=== PATIENT | male | born 1960 | race Caucasian/White ===

== ENCOUNTER 2021-03-31 19:31 | Inpatient (IN) ==
[2021-03-31] MEDS ORDERED: *HR* LORazepam 2 MG/ML VIAL IVP ONE (22:23)
[2021-03-31] MEDS ORDERED: Naloxone 0.4 MG/ML INJ IVP PRN (22:25)
[2021-03-31] MEDS ORDERED: Ondansetron ODT 4 MG TAB.RAPDIS SL PRN (22:25)
[2021-03-31] MEDS ORDERED: Melatonin 3 MG TABLET PO PRN (22:25)
[2021-03-31 22:54] LABS: Basophils % 0.4 %; Hematocrit 43.6 % (37.5-50.1); Hemoglobin 14.5 g/dL (12.9-16.9); Immature Granulocytes % 0.6 % (0-4); Lymphocytes # 0.3 K/mcL (0.6-4.6); Lymphocytes % 5.8 %; Mean Corpuscular HGB Conc 33.3 g/dL (31.6-35.5); Mean Corpuscular Hemoglobin 32.7 pg (28.0-33.3); Mean Corpuscular Volume 98.2 fL (83.0-100.0); Monocytes % 0.8 %; Neutrophils # 4.7 K/mcL (1.6-8.9); Platelet Count 142 K/mcL (140-400); Red Blood Count 4.44 M/mcL (4.19-5.50); Red Cell Distribution Width 14.9 % (11.5-14.5); Segmented Neutrophils % 92.4 %
[2021-03-31 23:03] LABS: Bilirubin,Urine Negative (Negative); Blood,Urine Negative (Negative); Clarity,Urine Clear (Clear); Color,Urine Colorless (Yellow); Glucose,Urine (UA) 300 mg/dL (Normal); Ketones,Urine 20 mg/dL (Negative); Leukocyte Esterase,Urine Negative (Negative); Mucus,Urine Few per lpf (None-Few); Nitrite,Urine Negative (Negative); PH,Urine 6.5 pH Units (5.0-8.0); Protein,Urine Negative (Neg-Trace); RBC,Urine 0-3 per hpf (0-3); Specific Gravity,Urine 1.018 (1.010-1.025); Squamous Epithelial Cell,Urine Few per hpf (None-Few); Urobilinogen,Urine Normal (Normal); WBC,Urine 0-3 per hpf (0-3)
[2021-03-31 23:10] LABS: BUN/Creatinine Ratio 15 (6-26); Blood Urea Nitrogen 10 mg/dL (6-20); Calcium 7.7 mg/dL (8.6-10.3); Carbon Dioxide 22 mEq/L (23-29); Chloride 99 mEq/L (98-107); Glucose 163 mg/dL (70-105); Osmolality,Calculated 279 (280-300); Potassium 3.9 mEq/L (3.5-5.1); Sodium 133 mEq/L (136-145); eGFR For African Americans > 60 (> 60); eGFR For Non-African Americans > 60 (> 60)
[2021-03-31] MEDS ORDERED: *HR* LORazepam 2 MG/ML VIAL IVP PRN ×2 (23:16)
[2021-03-31] MEDS ORDERED: Sennosides/Docusate Sodium TABLET PO PRN (23:18)
[2021-03-31] MEDS ORDERED: Acetaminophen 325 MG TABLET PO PRN (23:18)
[2021-03-31] MEDS ORDERED: Ringers Solution, Lactated 1,000 ML IVC SCH (23:45)
[2021-04-01] MEDS: Budesonide/Formoterol 160/4.5 1 PUFF INH IH SCH ×3 (00:10→19:54)
[2021-04-01] MEDS: Ipratropium/Albuterol Neb 3 ML IH SCH ×5 (00:12→19:54)
[2021-04-01] MEDS: Folic Acid 1 MG in 0.9 % Sodium Chloride 50 ML IVPB SCH ×3 (00:15→16:41)
[2021-04-01 00:18] LABS: Amphetamine Screen,Urine Positive ng/mL (Cutoff=1000); Barbiturate Screen,Urine Positive ng/mL (Cutoff=200); Benzodiazepines Screen,Urine Negative ng/mL (Cutoff=200); Cannabinoid Screen,Urine Negative ng/mL (Cutoff = 50); Cocaine Screen,Urine Negative ng/mL (Cutoff= 300); Opiate Screen,Urine Negative ng/mL (Cutoff=300); Phencyclidine Screen,Urine Negative ng/mL (Cutoff=25)
[2021-04-01] MEDS ORDERED: Nicotine 21 MG PATCH.TD24 TD PRN (00:28)
[2021-04-01] MEDS: Thiamine (B-1) 200 MG in 0.9 % Sodium Chloride 50 ML IVPB SCH ×3 (00:43→16:42)
[2021-04-01 03:04] LABS: Hematocrit 42.3 % (37.5-50.1); Mean Corpuscular HGB Conc 33.1 g/dL (31.6-35.5); Mean Corpuscular Hemoglobin 32.5 pg (28.0-33.3); Mean Corpuscular Volume 98.1 fL (83.0-100.0); Mean Platelet Volume 10.2 fL (9.4-12.4); Platelet Count 135 K/mcL (140-400); Red Blood Count 4.31 M/mcL (4.19-5.50); Red Cell Distribution Width 14.6 % (11.5-14.5); White Blood Count 4.5 K/mcL (4.3-11.1)
[2021-04-01 03:15] LABS: Amylase 116 Units/L (29-103); Ethanol < 10 mg/dL (Less than 10); Lipase 16 Units/L (11-82)
[2021-04-01 03:16] LABS: BUN/Creatinine Ratio 18 (6-26); Blood Urea Nitrogen 11 mg/dL (6-20); Carbon Dioxide 22 mEq/L (23-29); Chloride 101 mEq/L (98-107); Cholesterol 313 mg/dL (< 200); Glucose 194 mg/dL (70-105); HDL Cholesterol 78 mg/dL (40-59); LDL Cholesterol,Calculated 195 mg/dL (< 100); Magnesium 1.7 mg/dL (1.6-2.6); Osmolality,Calculated 279 (280-300); Phosphorous 2.5 mg/dL (2.7-4.5); Potassium 3.8 mEq/L (3.5-5.1); Sodium 132 mEq/L (136-145); Triglycerides 199 mg/dL (< 150); eGFR For African Americans > 60 (> 60); eGFR For Non-African Americans > 60 (> 60)
[2021-04-01 03:54] LABS: INR 1.1; Prothrombin Time 11.8 Seconds (9.4-12.1)
[2021-04-01 03:56] LABS: Activated Partial Thrombo Time 27.7 Seconds (26.0-36.0)
[2021-04-01] MEDS: *HR* Heparin 5,000 UNIT/ML VIAL SQ SCH ×2 (06:22→16:42)
[2021-04-01] MEDS: *HR* LORazepam 2 MG/ML VIAL IVP PRN ×3 (06:27→21:16)
[2021-04-01] MEDS: predniSONE 20 MG TABLET PO SCH ×2 (15:19→16:43)
[2021-04-01] MEDS: carvediloL 6.25 MG TABLET PO SCH ×2 (16:43→20:19)
[2021-04-01] MEDS: Azithromycin 250 MG TABLET PO SCH (16:43)
[2021-04-02] MEDS: *HR* LORazepam 2 MG/ML VIAL IVP PRN ×2 (01:28→08:09)
[2021-04-02] MEDS: Ipratropium/Albuterol Neb 3 ML IH SCH ×2 (03:58→08:39)
[2021-04-02] MEDS: *HR* Heparin 5,000 UNIT/ML VIAL SQ SCH (06:17)
[2021-04-02 07:36] LABS: Basophils % 0.3 %; Eosinophils % 0.1 %; Hematocrit 46.7 % (37.5-50.1); Hemoglobin 15.5 g/dL (12.9-16.9); Immature Granulocytes % 0.5 % (0-4); Lymphocytes % 12.6 %; Mean Corpuscular HGB Conc 33.2 g/dL (31.6-35.5); Mean Corpuscular Hemoglobin 32.8 pg (28.0-33.3); Mean Corpuscular Volume 98.9 fL (83.0-100.0); Mean Platelet Volume 10.6 fL (9.4-12.4); Monocytes # 0.4 K/mcL (0.0-1.3); Monocytes % 5.8 %; Platelet Count 163 K/mcL (140-400); Red Blood Count 4.72 M/mcL (4.19-5.50); Red Cell Distribution Width 14.7 % (11.5-14.5); Segmented Neutrophils % 80.7 %
[2021-04-02 07:39] LABS: Neutrophils # 6.1 K/mcL (1.6-8.9); White Blood Count 7.6 K/mcL (4.3-11.1)
[2021-04-02 07:47] LABS: BUN/Creatinine Ratio 23 (6-26); Blood Urea Nitrogen 19 mg/dL (6-20); Calcium 9.4 mg/dL (8.6-10.3); Carbon Dioxide 27 mEq/L (23-29); Chloride 97 mEq/L (98-107); Glucose 99 mg/dL (70-105); Magnesium 2.2 mg/dL (1.6-2.6); Osmolality,Calculated 278 (280-300); Phosphorous 3.4 mg/dL (2.7-4.5); Potassium 3.3 mEq/L (3.5-5.1); Sodium 133 mEq/L (136-145); eGFR For African Americans > 60 (> 60); eGFR For Non-African Americans > 60 (> 60)
[2021-04-02] MEDS ORDERED: carvediloL 25 MG TABLET PO SCH (08:00)
[2021-04-02] MEDS: Azithromycin 250 MG TABLET PO SCH (08:08)
[2021-04-02] MEDS: predniSONE 20 MG TABLET PO SCH (08:08)
[2021-04-02] MEDS: Thiamine (B-1) 200 MG in 0.9 % Sodium Chloride 50 ML IVPB SCH (08:15)
[2021-04-02] MEDS: Folic Acid 1 MG in 0.9 % Sodium Chloride 50 ML IVPB SCH (08:15)
[2021-04-02] MEDS: Budesonide/Formoterol 160/4.5 1 PUFF INH IH SCH (08:40)
[2021-04-02 10:25] VITALS: BP 106/65; PULSE 98; TEMP 98
[2021-04-02 11:31] VITALS: O2SAT 99
== END 2021-04-02 13:53 | disposition home or self-care (01) | DRG 140 ==
LOC: 3NENU → SUATTDRO 04-01 14:03
PROVIDERS: ADMIT Internal Medicine; ATTEND Internal Medicine